=== PATIENT | female | born 1970 | race Caucasian/White ===

== ENCOUNTER 2023-03-24 08:49 | Outpatient (RCR) | payer BC, SELFPAY | END 2023-04-01 16:49 | disposition home or self-care (01) | LOC: PT 08:49 | PROVIDERS: PCP Family Medicine; Visit Provider Family Medicine | DX: M54.2 Cervicalgia (principal); M79.645 Pain in left finger(s); E66.09 Other obesity due to excess calories; Z68.36 Body mass index [BMI] 36.0-36.9, adult | CPT/HCPCS: 97110; 97140 ==

== ENCOUNTER 2023-03-24 08:50 | Outpatient (RCR) | payer BC, SELFPAY | END 2023-06-01 16:47 | disposition home or self-care (01) | LOC: OT 08:50 | PROVIDERS: PCP Family Medicine; Visit Provider Family Medicine | DX: M54.2 Cervicalgia (principal); M79.645 Pain in left finger(s); E66.09 Other obesity due to excess calories; Z68.36 Body mass index [BMI] 36.0-36.9, adult | CPT/HCPCS: 97014; 97035; 97110; 97530; G0283 ==